=== PATIENT | female | born 1965 | race African-American/Black ===

== ENCOUNTER 2018-02-19 19:45 | Emergency (ER) | payer MEDICAID ==
[~2018-02-19] VITALS: Ht 157.5 cm; Wt 99.8 kg
[2018-02-19 21:56] VITALS: BP 155/94
[2018-02-19] MEDS ORDERED: HYDROcodone-ACET 10/325MG TAB PO ONE (22:00)
== END 2018-02-19 22:23 | disposition home or self-care (01) ==
LOC: ER 19:45
DX: M54.2 Cervicalgia (principal); M62.838 Other muscle spasm; R51 Headache; V49.59XA Passenger injured in collision with other motor vehicles in traffic accident, initial encounter; Y93.I9 Activity, other involving external motion; Y92.488 Other paved roadways as the place of occurrence of the external cause; Y99.8 Other external cause status
CPT/HCPCS: 70450; 72040; 72070